=== PATIENT | female | born 1935 | race Caucasian/White ===

== ENCOUNTER 2020-08-22 10:54 | Inpatient (IN) ==
[2020-08-22 11:38] LABS: Basophils # (auto) 0.05 K/uL (0-0.2); Basophils % (auto) 0.4 %; Eosinophils # (auto) 2.18 K/uL (0-0.5); Eosinophils % (auto) 18.6 %; Hematocrit (blood only) 36.4 % (37-47); Hemoglobin 11.1 g/dL (12.0-16.0); Immature Granulocytes # (auto) 0.03 K/uL (0.00-0.02); Immature Granulocytes % (auto) 0.3 %; Lymphocytes # (auto) 1.87 K/uL (1.2-3.4); Mean Corpuscular Hemoglobin 29.6 pg (25-34); Mean Corpuscular Hgb Conc 30.5 g/dL (32-36); Mean Corpuscular Volume 97.1 fL (80-100); Mean Platelet Volume 9.2 fL (7.4-10.4); Monocytes # (auto) 0.44 K/uL (0.11-0.59); Monocytes % (auto) 3.8 %; Neutrophils # (auto) 7.13 K/uL (1.4-6.5); Neutrophils % (auto) 60.9 %; Platelet Count 254 K/uL (130-400); RDW Coefficient of Variation 14.5 % (11.5-14.5); RDW Standard Deviation 51.6 fL (36.4-46.3); Red Blood Count 3.75 M/uL (4.2-5.4)
--- NOTE | 2020-08-22 11:43 | XRay Report ---
XR chest 1V portable HISTORY: SEPSIS COMPARISON: None. FINDINGS: Cardiac silhouette is mildly enlarged. Small bilateral pleural effusions and diffuse inters titial thickening with hazy airspace opacities within the mid to lower lung zones. No pneumothorax. IMPRESSION: Above findings favor moderate pulmonary edema with small bilateral pleural effusions. The hazy airspa ce opacities at the lung bases could represent layering pleural fluid or a superimposed pneumonia. ACT 112: Negative or not required by law. Electronically signed by: Tejinder Pardo M.D. 08/22/2020 11:42 AM
[2020-08-22 11:45] LABS: Albumin Level 3.4 gm/dl (3.4-5.0); BUN Creatinine Ratio 19.4 (10-20); Calcium 8.4 mg/dl (8.5-10.1); Creatinine Clr Calc Pharmacy 45.7 ml/min; Est GFR (African American) 62.5; Est GFR (Non-African American) 53.9; Magnesium 2.2 mg/dl (1.8-2.4); Potassium 4.6 mmol/L (3.5-5.1)
[2020-08-22 11:48] LABS: INR 1.2 (0.9-1.1); Partial Thromboplastin Ratio 0.9; Partial Thromboplastin Time 24.7 Seconds (21.0-31.0); Prothrombin Time 12.3 Seconds (9.0-12.0)
[2020-08-22 11:54] LABS: Albumin Globulin Ratio 0.8 (0.9-2); Bilirubin,Total 0.5 mg/dl (0.2-1); Globulin 4.5 gm/dl (2.5-4.0); Total Protein 7.9 gm/dl (6.4-8.2); Troponin I 0.135 ng/ml (0-0.045)
--- NOTE | 2020-08-22 11:54 | Emergency Department Note ---
Impression & Plan Pulmonary edema, Hypoxia, Respiratory failure, Elevated troponin I level ED Provider Note NAME: FELICITAS NATHAN AGE: 84 SEX: F : 1935 ARRIVES VIA: Ambulance INFORMANT: Patient, ED PROVIDER(S): Julian Hardy DO CHIEF COMPLAINT: Shortness of breath HPI: The patient is an 84-year-old female who presented to the emergency dep artment by ambulance for an evaluation of shortness of breath. The patient does have a history of cardiac disease. She presented to the emergency department by ambulance and was placed on BiPAP prior to arrival. Her oxygen saturation was reportedly very low. She started having shortness of breath overnight which worsened prior to arrival. She was also given 2 DuoNeb treatments as well as Solu-Medrol prior to arrival. She states that she has had a nonproductive cough. She denies having any fever. She denies having any chest pain. She does have lower extremity swelling in her legs. She states that she has worsening swelling in her right leg after she had ankle surgery in the past. S he denies having any abdominal pain or vomiting. She is compliant with all of her medications. She states her symptoms are significantly improved after addition of BiPAP. ROS: See above HPI for pertinent positives & negatives. A total of 10 systems reviewed and were otherwise negative. PAST MEDICAL HISTORY: See Below PAST SURGICAL HISTORY: See Below FAMILY HISTORY: See Below SOCIAL HISTORY: See Below HOME MEDICATIONS: See Below ALLERGIES: See Below VITALS: See Below PHYSICAL EXAMINATION: GENERAL: The patient is awake and alert. The patient is very anxious appearing. EYES: The conjunctivae are clear. The pupils are round and reactive. EARS, NOSE, MOUTH AND THROAT: The nose is without any evidence of any deformity. Mucous membranes are moist. Tongue is midline. NECK: The neck is nontender and supple. RESPIRATORY: Diminished breath sounds are noted at both bases. There were rales noted at both lower lung nolasco. CARDIOVASCULAR: Regular rate and rhythm noted there no murmurs rubs or gallops normal S1 normal S2. GASTROINTESTINAL: The abdomen is soft. Abdomen is nontender. MUSCULOSKELETAL/EXTREMITIES: There is no evidence of gross deformity full range of motion is noted in the hips and shoulders. SKIN: There is no obvious evidence of any rash. Pedal edema was noted bilaterally right greater than left. There was no calf tenderness. NEUROLOGIC: Patient is awake alert and oriented x3. MEDICAL DECISION MAKING: The patient is an 84-year-old female who presented to the emergency department by ambulance for an evaluation of shortness of breath. The patient was having severe shortness of breath and was placed on BiPAP prior to arrival. She also received duo nebs and Solu-Medrol. The patient's presentation does appear to be more consistent with pulmonary edema. Radiographic studies appear to be consistent with pulmonary edema. The patient was treated with Lasix in the emergency department. She was also covered with an antibiotic and blood cultures were obtained. I discussed the patient's laboratory and radiographic studies with her. She initially was very obtunded but appears to be sig nificantly improved at this time. I discussed the patient's condition with the on-call [facility]ist. They have agreed to evaluate the patient in the emergency department for further management and disposition. Triage Nursing notes reviewed. Prior medical records reviewed Vital Signs: reviewed and remarkable for elevated blood pressure and hypoxia. Differential diagnosis: Reactive airway disease, pneumonia, pneumothorax, COPD, CHF, infections, cardiac ischemia, pulmonary embolism, musculoskeletal, gastrointestinal, as well as other pathologies. ER treatment provided: See below Diagnostics interpreted by me: ECG: EKG was obtained in the emergency department. My interpretation is normal sinus rhythm at [address] depressions were noted. There was no ectopy. No previous tracing was available for comparison. Cardiac Monitoring: An order was placed for continuous cardiac monitoring. The monitor shows a rate of 86 bpm with sinus rhythm. Laboratory studies: As stated above and show below. Imaging studies: See below Consultation(s): I discussed this case with Dr. Sanz who is on-call for the [facility]ist group. ED COURSE: Procedures: none PDMP:reviewed and no issues Critical Care: I have personally spent greater than 45 minutes of critical care time in the direct management of this patient. This includes bedside care, interpretation of diagnostic studies, and testing, discussion with consultants, patient, and family members, and other required patient management activities. This 45 minutes is in excess of all separately billable procedures. Past Med/Surg History Medical History History of hyperlipidemia History of hypertension History of hypothyroidism History of insulin dependent diabetes mellitus Family History (Updated 08/22/20 @ 13:32 by Charmaine Sanz DO) Sister Myocardial infarction Sister Myocardial infarction Brother Myocardial infarction Social History (Updated 08/22/20 @ 13:33 by Charmaine Sanz DO) Smoking Status: Never smoker Hx Alcohol Use: Yes (occasional wine) Hx Substance Use: No Preferred Language: Croatian Feels Safe at Home: Yes Allergies Allergies Allergy/AdvReac Type Severity Reaction Status Date / Time No Known Allergies Allergy Unverified 08/22/20 11:26 Home Meds Home Medications Medication Instructions Recorded Confirmed amlodipine 10 mg PO DAILY 08/22/20 08/22/20 atorvastatin 40 mg PO DAILY 08/22/20 08/22/20 carvedilol 25 mg PO BID 08/22/20 08/22/20 doxazosin 2 mg PO DAILY 08/22/20 08/22/20 furosemide 40 mg PO DAILY 08/22/20 08/22/20 insulin glargine [Lantus Solostar 26 unit SUBCUT PM 08/22/20 08/22/20 U-100 Insulin] levothyroxine [Synthroid] 75 mcg PO QAM 08/22/20 08/22/20 metformin 1,000 mg PO BID 08/22/20 08/22/20 potassium chloride 20 meq PO DAILY 08/22/20 08/22/20 quinapril 40 mg PO DAILY 08/22/20 08/22/20 Results & Data (ED) Vital Signs Vital Signs - 24 hr 08/22/20 11:03 08/22/20 11:06 08/22/20 11:07 Pulse Rate 85 87 Pulse Rate [Apical] Pulse Rhythm Regular Pulse Rhythm [Apical] Pulse Strength Pulse Strength [Apical] Respiratory Rate 32 H 12 Respiratory Effort / Characteristics Spontaneous Respiratory Depth Shallow Respiratory Pattern Tachypnea Blood Pressure Blood Pressure [Left Arm] Blood Pressure Mean Blood Pressure Mean [Left Arm] Blood Pressure Position Blood Pressure Position [Left Arm] Pulse Oximetry 99 96 96 Oxygen Delivery Method CPAP CPAP Oxygen Flow Rate Fraction of Inspired Oxygen 50 50 50 SaO2/FiO2 Ratio 192 Sepsis Recent Fever Within 48 Hours Sepsis New/Unexplained Change in Mental Status Sepsis Action Taken by Nursing 08/22/20 11:08 08/22/20 11:15 08/22/20 11:21 Pulse Rate 87 Pulse Rate [Apical] 84 Pulse Rhythm Regular Pulse Rhythm [Apical] Regular Pulse Strength Normal Pulse Strength [Apical] Normal Respiratory Rate 26 H 24 Respiratory Effort / Characteristics Non-Labored Spontaneous Spontaneous Accessory Muscle Use Labored Retracting Short of Breath SOB on Exertion Non-Labored Spontaneous Respiratory Depth Retractive Retractive Normal Respiratory Pattern Regular Regular Regular Blood Pressure 164/130 H Blood Pressure [Left Arm] 174/73 H Blood Pressure Mean 141 Blood Pressure Mean [Left Arm] 106 Blood Pressure Position Sitting Blood Pressure Position [Left Arm] Sitting Pulse Oximetry 96 94 Oxygen Delivery Method CPAP CPAP CPAP Oxygen Flow Rate Fraction of Inspired Oxygen 50 50 50 SaO2/FiO2 Ratio 192 188 Sepsis Recent Fever Within 48 Hours No Sepsis New/Unexplained Change in Mental Status No Sepsis Action Taken by Nursing No Action Required 08/22/20 12:16 08/22/20 13:26 08/22/20 13:28 Pulse Rate Pulse Rate [Apical] 83 84 Pulse Rhythm Pulse Rhythm [Apical] Regular Regular Pulse Strength Pulse Strength [Apical] Normal Normal Respiratory Rate 22 20 Respiratory Effort / Characteristics Non-Labored Spontaneous Non-Labored Spontaneous Respiratory Depth Normal Normal Respiratory Pattern Regular Regular Blood Pressure Blood Pressure [Left Arm] 150/101 H 137/76 Blood Pressure Mean Blood Pressure Mean [Left Arm] 117 96 Blood Pressure Position Blood Pressure Position [Left Arm] Sitting Lying Pulse Oximetry 95 91 91 Oxygen Delivery Method CPAP Oxymask Oxymask Oxygen Flow Rate 10 10 Fraction of Inspired Oxygen 50 SaO2/FiO2 Ratio 190 Sepsis Recent Fever Within 48 Hours Sepsis New/Unexplained Change in Mental Status Sepsis Action Taken by Assisted Medications Current Medication List: was personally reviewed by me Laboratory Data Attestation: I reviewed the patient's lab results. Result diagrams: 08/22/20 11:05 08/22/20 11:05 Lab Results 08/22/20 08/22/20 08/22/20 Range/Units 11:05 11:05 11:05 WBC 11.70 H (4.8-10.8) K/uL RBC 3.75 L (4.2-5.4) M/uL Hgb 11.1 L (12.0-16.0) g/dL Hct 36.4 L (37-47) % MCV 97.1 (80-100) fL MCH 29.6 (25-34) pg MCHC 30.5 L (32-36) g/dL RDW Std Deviation 51.6 H (36.4-46.3) fL RDW Coeff of Khoi 14.5 (11.5-14.5) % Plt Count 254 (130-400) K/uL MPV 9.2 (7.4-10.4) fL Immature Gran % (Auto) 0.3 % Neut % (Auto) 60.9 % Lymph % (Auto) 16.0 % Iron % (Auto) 3.8 % Eos % (Auto) 18.6 % Baso % (Auto) 0.4 % Neut # (Auto) 7.13 H (1.4-6.5) K/uL Lymph # (Auto) 1.87 (1.2-3.4) K/uL Iron # (Auto) 0.44 (0.11-0.59) K/uL Eos # (Auto) 2.18 H (0-0.5) K/uL Baso # (Auto) 0.05 (0-0.2) K/uL Immature Gran # (Auto) 0.03 H (0.00-0.02) K/uL PT 12.3 H (9.0-12.0) Seconds INR 1.2 H (0.9-1.1) APTT 24.7 (21.0-31.0) Seconds PTT Ratio 0.9 VBG pH (7.36-7.41) VBG pCO2 (38-50) mmHg VBG pO2 mmHg VBG HCO3 mmol/L VBG O2 Saturation % VBG Base Excess mEq/L Barometric Pressure mm/Hg Sodium 136 (136-145) mmol/L Potassium 4.6 (3.5-5.1) mmol/L Chloride 102 (98-107) mmol/L Carbon Dioxide 35 H (21-32) mmol/L Anion Gap -1.0 L (3-11) BUN 19 H (7-18) mg/dl Creatinine 0.96 (0.6-1.2) mg/dl Est Cr Clr Drug Dosing 45.7 ml/min Est GFR ( Amer) 62.5 Est GFR (Non-Af Amer) 53.9 BUN/Creatinine Ratio 19.4 (10-20) Glucose 157 H (70-99) mg/dl Lactate (0.4-2.0) mmol/L Calcium 8.4 L (8.5-10.1) mg/dl Magnesium 2.2 (1.8-2.4) mg/dl Total Bilirubin 0.5 (0.2-1) mg/dl AST 15 (15-37) U/L ALT 25 (12-78) U/L Alkaline Phosphatase 82 (45-117) U/L Troponin I 0.135 H* (0-0.045) ng/ml NT-Pro-B Natriuret Pep 947 (0-1800) pg/ml Total Protein 7.9 (6.4-8.2) gm/dl Albumin 3.4 (3.4-5.0) gm/dl Globulin 4.5 H (2.5-4.0) gm/dl Albumin/Globulin Ratio 0.8 L (0.9-2) Procalcitonin (0-0.5) ng/ml Urine Color Urine Appearance (Clear) Urine pH (4.5-7.5) Ur Specific [place] (1.000-1.030) Urine Protein (Negative) Urine Glucose (UA) (Negative) Urine Ketones (Negative) Urine Blood (Negative) Urine Nitrite (Negative) Urine Bilirubin (Negative) Urine Urobilinogen (Negative) Ur Leukocyte Esterase (Negative) Urine WBC (Auto) (0-5) /hpf Urine RBC (Auto) (0-4) /hpf U Hyaline Cast (Auto) (0-5) /lpf U Epithel Cells (Auto) (0-5) /lpf Urine Bacteria (Auto) (Negative) COVID-19 Eval Order SARS-CoV-2, RNA, NAAT (NEGATIVE) Blood Type Antibody Screen 08/22/20 08/22/20 08/22/20 Range/Units 11:05 11:05 11:25 WBC (4.8-10.8) K/uL RBC (4.2-5.4) M/uL Hgb (12.0-16.0) g/dL Hct (37-47) % MCV (80-100) fL MCH (25-34) pg MCHC (32-36) g/dL RDW Std Deviation (36.4-46.3) fL RDW Coeff of Khoi (11.5-14.5) % Plt Count (130-400) K/uL MPV (7.4-10.4) fL Immature Gran % (Auto) % Neut % (Auto) % Lymph % (Auto) % Iron % (Auto) % Eos % (Auto) % Baso % (Auto) % Neut # (Auto) (1.4-6.5) K/uL Lymph # (Auto) (1.2-3.4) K/uL Iron # (Auto) (0.11-0.59) K/uL Eos # (Auto) (0-0.5) K/uL Baso # (Auto) (0-0.2) K/uL Immature Gran # (Auto) (0.00-0.02) K/uL PT (9.0-12.0) Seconds INR (0.9-1.1) APTT (21.0-31.0) Seconds PTT Ratio VBG pH (7.36-7.41) VBG pCO2 (38-50) mmHg VBG pO2 mmHg VBG HCO3 mmol/L VBG O2 Saturation % VBG Base Excess mEq/L Barometric Pressure mm/Hg Sodium (136-145) mmol/L Potassium (3.5-5.1) mmol/L Chloride (98-107) mmol/L Carbon Dioxide (21-32) mmol/L Anion Gap (3-11) BUN (7-18) mg/dl Creatinine (0.6-1.2) mg/dl Est Cr Clr Drug Dosing ml/min Est GFR ( Amer) Est GFR (Non-Af Amer) BUN/Creatinine Ratio (10-20) Glucose (70-99) mg/dl Lactate 0.8 (0.4-2.0) mmol/L Calcium (8.5-10.1) mg/dl Magnesium (1.8-2.4) mg/dl Total Bilirubin (0.2-1) mg/dl AST (15-37) U/L ALT (12-78) U/L Alkaline Phosphatase (45-117) U/L Troponin I (0-0.045) ng/ml NT-Pro-B Natriuret Pep (0-1800) pg/ml Total Protein (6.4-8.2) gm/dl Albumin (3.4-5.0) gm/dl Globulin (2.5-4.0) gm/dl Albumin/Globulin Ratio (0.9-2) Procalcitonin < 0.05 (0-0.5) ng/ml Urine Color Urine Appearance (Clear) Urine pH (4.5-7.5) Ur Specific [place] (1.000-1.030) Urine Protein (Negative) Urine Glucose (UA) (Negative) Urine Ketones (Negative) Urine Blood (Negative) Urine Nitrite (Negative) Urine Bilirubin (Negative) Urine Urobilinogen (Negative) Ur Leukocyte Esterase (Negative) Urine WBC (Auto) (0-5) /hpf Urine RBC (Auto) (0-4) /hpf U Hyaline Cast (Auto) (0-5) /lpf U Epithel Cells (Auto) (0-5) /lpf Urine Bacteria (Auto) (Negative) COVID-19 Eval [email or web address] SARS-CoV-2, RNA, NAAT (NEGATIVE) Blood Type Antibody Screen 08/22/20 08/22/20 08/22/20 Range/Units 11:25 11:44 11:44 WBC (4.8-10.8) K/uL RBC (4.2-5.4) M/uL Hgb (12.0-16.0) g/dL Hct (37-47) % MCV (80-100) fL MCH (25-34) pg MCHC (32-36) g/dL RDW Std Deviation (36.4-46.3) fL RDW Coeff of Khoi (11.5-14.5) % Plt Count (130-400) K/uL MPV (7.4-10.4) fL Immature Gran % (Auto) % Neut % (Auto) % Lymph % (Auto) % Iron % (Auto) % Eos % (Auto) % Baso % (Auto) % Neut # (Auto) (1.4-6.5) K/uL Lymph # (Auto) (1.2-3.4) K/uL Iron # (Auto) (0.11-0.59) K/uL Eos # (Auto) (0-0.5) K/uL Baso # (Auto) (0-0.2) K/uL Immature Gran # (Auto) (0.00-0.02) K/uL PT (9.0-12.0) Seconds INR (0.9-1.1) APTT (21.0-31.0) Seconds PTT Ratio VBG pH 7.22 L (7.36-7.41) VBG pCO2 81 H (38-50) mmHg VBG pO2 55 mmHg VBG HCO3 32 mmol/L VBG O2 Saturation 81.0 % VBG Base Excess 2.7 mEq/L Barometric Pressure 739.2 mm/Hg Sodium (136-145) mmol/L Potassium (3.5-5.1) mmol/L Chloride (98-107) mmol/L Carbon Dioxide (21-32) mmol/L Anion Gap (3-11) BUN (7-18) mg/dl Creatinine (0.6-1.2) mg/dl Est Cr Clr Drug Dosing ml/min Est GFR ( Amer) Est GFR (Non-Af Amer) BUN/Creatinine Ratio (10-20) Glucose (70-99) mg/dl Lactate (0.4-2.0) mmol/L Calcium (8.5-10.1) mg/dl Magnesium (1.8-2.4) mg/dl Total Bilirubin (0.2-1) mg/dl AST (15-37) U/L ALT (12-78) U/L Alkaline Phosphatase (45-117) U/L Troponin I (0-0.045) ng/ml NT-Pro-B Natriuret Pep (0-1800) pg/ml Total Protein (6.4-8.2) gm/dl Albumin (3.4-5.0) gm/dl Globulin (2.5-4.0) gm/dl Albumin/Globulin Ratio (0.9-2) Procalcitonin (0-0.5) ng/ml Urine Color Urine Appearance (Clear) Urine pH (4.5-7.5) Ur Specific [place] (1.000-1.030) Urine Protein (Negative) Urine Glucose (UA) (Negative) Urine Ketones (Negative) Urine Blood (Negative) Urine Nitrite (Negative) Urine Bilirubin (Negative) Urine Urobilinogen (Negative) Ur Leukocyte Esterase (Negative) Urine WBC (Auto) (0-5) /hpf Urine RBC (Auto) (0-4) /hpf U Hyaline Cast (Auto) (0-5) /lpf U Epithel Cells (Auto) (0-5) /lpf Urine Bacteria (Auto) (Negative) COVID-19 Eval Order SARS-CoV-2, RNA, NAAT NEGATIVE (NEGATIVE) Blood Type A Positive Antibody Screen NEGATIVE 08/22/20 Range/Units 12:43 WBC (4.8-10.8) K/uL RBC (4.2-5.4) M/uL Hgb (12.0-16.0) g/dL Hct (37-47) % MCV (80-100) fL MCH (25-34) pg MCHC (32-36) g/dL RDW Std Deviation (36.4-46.3) fL RDW Coeff of Khoi (11.5-14.5) % Plt Count (130-400) K/uL MPV (7.4-10.4) fL Immature Gran % (Auto) % Neut % (Auto) % Lymph % (Auto) % Iron % (Auto) % Eos % (Auto) % Baso % (Auto) % Neut # (Auto) (1.4-6.5) K/uL Lymph # (Auto) (1.2-3.4) K/uL Iron # (Auto) (0.11-0.59) K/uL Eos # (Auto) (0-0.5) K/uL Baso # (Auto) (0-0.2) K/uL Immature Gran # (Auto) (0.00-0.02) K/uL PT (9.0-12.0) Seconds INR (0.9-1.1) APTT (21.0-31.0) Seconds PTT Ratio VBG pH (7.36-7.41) VBG pCO2 (38-50) mmHg VBG pO2 mmHg VBG HCO3 mmol/L VBG O2 Saturation % VBG Base Excess mEq/L Barometric Pressure mm/Hg Sodium (136-145) mmol/L Potassium (3.5-5.1) mmol/L Chloride (98-107) mmol/L Carbon Dioxide (21-32) mmol/L Anion Gap (3-11) BUN (7-18) mg/dl Creatinine (0.6-1.2) mg/dl Est Cr Clr Drug Dosing ml/min Est GFR ( Amer) Est GFR (Non-Af Amer) BUN/Creatinine Ratio (10-20) Glucose (70-99) mg/dl Lactate (0.4-2.0) mmol/L Calcium (8.5-10.1) mg/dl Magnesium (1.8-2.4) mg/dl Total Bilirubin (0.2-1) mg/dl AST (15-37) U/L ALT (12-78) U/L Alkaline Phosphatase (45-117) U/L Troponin I (0-0.045) ng/ml NT-Pro-B Natriuret Pep (0-1800) pg/ml Total Protein (6.4-8.2) gm/dl Albumin (3.4-5.0) gm/dl Globulin (2.5-4.0) gm/dl Albumin/Globulin Ratio (0.9-2) Procalcitonin (0-0.5) ng/ml Urine Color Yellow Urine Appearance Clear (Clear) Urine pH 5.5 (4.5-7.5) Ur Specific [place] 1.020 (1.000-1.030) Urine Protein 2+ H (Negative) Urine Glucose (UA) Negative (Negative) Urine Ketones Negative (Negative) Urine Blood Negative (Negative) Urine Nitrite Negative (Negative) Urine Bilirubin Negative (Negative) Urine Urobilinogen Negative (Negative) Ur Leukocyte Esterase Negative (Negative) Urine WBC (Auto) 1-5 (0-5) /hpf Urine RBC (Auto) 0-4 (0-4) /hpf U Hyaline Cast (Auto) 1-5 (0-5) /lpf U Epithel Cells (Auto) 10-20 H (0-5) /lpf Urine Bacteria (Auto) Negative (Negative) COVID-19 Eval Order SARS-CoV-2, RNA, NAAT (NEGATIVE) Blood Type Antibody Screen Administered Medications Discontinued Medications Furosemide (Furosemide 40 Mg/4 Ml Vial) 40 mg IV NOW STA Stop: 08/22/20 12:10 Last Admin: 08/22/20 12:31 Dose: 40 mg Documented by: [id number] Piperacillin Sod/Tazobactam Sod (Zosyn) 4.5 gm in 120 mls @ 240 mls/hr IV NOW ONE Stop: 08/22/20 12:38 Last Infusion: 08/22/20 13:01 Dose: 0 mls/hr Documented by: [id number] Admin: 08/22/20 12:31 Dose: 240 mls/hr Documented by: [id number] Imaging Data Radiologist's Impression: Patient: JACFELICITAS Admit Date: 08/22/20 MR#: [id number] Address[address]: [address] Acct ID:[id number] Address2: [address] Date: 1935 [facility] Zip: [id number] Age: 84 Location: ED Sex: F Room/Bed: Att Phy: Diagnosis: X Karena Phy: PCP,NO Service Date: 08/22/20 Fam Phy: Interpreting Phy: Tejinder Pardo MD Admit Phy: Ordering Phy: Julian Hardy, DO cc: ~ XR chest 1V portable HISTORY: SEPSIS COMPARISON: None. FINDINGS: Cardiac silhouette is mildly enlarged. Small bilateral pleural effusions and diffuse interstitial thickening with hazy airspace opacities within the mid to lower lung zones. No pneumothorax. IMPRESSION: Above findings favor moderate pulmonary edema with small bilateral pleural effusions. The hazy airspace opacities at the lung bases could represent layering pleural fluid or a superimposed pneumonia. ACT 112: Negative or not required by law. Electronically signed by: Tejinder Pardo M.D. 08/22/2020 11:42 AM Dictated: 08/22/20 1141 Transcribed: 08/22/20 1141 Blood Pressure Blood Pressure Findings: Normal blood pressure Discharge Plan Visit Data Chief Complaint: Shortness of Breath/Dyspnea ED Provider: Julian Hardy Discharge Problem: Pulmonary edema, Hypoxia, Respiratory failure, Elevated troponin I level Patient Disposition: Being Evaluated by Hospitalist Condition: Good Forms Stand Alone Forms: My [facility] [employer] Prescriptions Prescriptions: No Action furosemide 40 mg tablet 40 mg PO DAILY RF: 0 atorvastatin 40 mg tablet 40 mg PO DAILY RF: 0 carvedilol 25 mg tablet 25 mg PO BID RF: 0 potassium chloride 10 mEq tablet extended release 20 meq PO DAILY RF: 0 quinapril 40 mg tablet 40 mg PO DAILY RF: 0 levothyroxine [Synthroid] 75 mcg tablet 75 mcg PO QAM RF: 0 amlodipine 10 mg tablet 10 mg PO DAILY RF: 0 metformin 1,000 mg tablet 1,000 mg PO BID RF: 0 doxazosin 2 mg tablet 2 mg PO DAILY RF: 0 Lantus Solostar U-100 Insulin 100 unit/mL (3 mL) insulin pen 26 unit SUBCUT PM RF: 0 Referrals Referrals: PCP,NO [Primary Care Provider] -
[2020-08-22 12:01] LABS: Base Excess VBG 2.7 mEq/L; pH VBG 7.22 (7.36-7.41)
[2020-08-22] MEDS ORDERED: PIPERACILLIN/TAZOBACTAM 4.5 GM/120 ML BAG IV ONE (12:09)
[2020-08-22] MEDS ORDERED: FUROSEMIDE 40 MG/4 ML VIAL IV STA (12:09)
[2020-08-22] MEDS ORDERED: PIPERACILL/TAZOBAC CONSULT ACTIVE PRN (12:09)
[2020-08-22 13:04] LABS: Appearance Urine Clear (Clear); Bacteria Urine Automated Negative (Negative); Bilirubin Urine Negative (Negative); Blood Urine Negative (Negative); Color Urine Yellow; Glucose Urine UA Negative (Negative); Ketones Urine Negative (Negative); Leukocyte Esterase Urine Negative (Negative); Nitrite Urine Negative (Negative); Protein Urine 2+ (Negative); RBC Urine Automated 0-4 /hpf (0-4); Urobilinogen Urine Negative (Negative); pH Urine 5.5 (4.5-7.5)
--- NOTE | 2020-08-22 13:30 | History & Physical Report ---
Date of Service August 22, 2020 Assessment & Plan (1) Hypoxia: CXR noted for likely pleural effusions, less likely superimposed PNA Pt felt her sx had resolved s/p BIPAP, nebs, solumedrol en route to [facility] Pt received lasix and zosyn in the ED Pt takes lasix 40mg QD at baseline, seems likely this is a CHF exacerbation Recent ECHO with [facility], records requested Repeat ECHO given sudden onset of sx in the setting of medication compliance Trop with slight elevation at 0.135, serials pending EKG neg for acute PRP, Mg WNL CBC is with very slight anemia and leukocytosis Procal neg, afebrile, will not continue abx at this time Wean BIPAP as able COVID neg on admission (2) Elevated troponin: As noted above (3) HTN (hypertension): continue home meds BP slightly elevated, will give some of missed AM meds now and monitor (4) Leukocytosis: Procal neg, afebrile, will not continue abx at this time Possibly related to steroid use [employer] TREE [employer] Monitor (5) Hypothyroid: continue home meds (6) DM type 2 (diabetes mellitus, type 2): A1c pending Metformin, lantus as at home SSI PRN (7) Hyperlipidemia: continue home meds (8) DVT prophylaxis: SCDs, aspirin History of Present Illness Primary Care Provider: NO PCP 84 y/o F c/o SOB. Pt states she has not been SOB at all recently, even with exe rtion. She had a usual day for herself yesterday. She took all of her medications yesterday and she does not miss doses of lasix ever. She woke up this morning and felt fine. She got dressed and was waiting for her nephew to come as he usually does on Monday mornings. She was lying on the couch waiting when she had a sudden onset of SOB. She could not catch her breath. Her nephew came and called the ambulance. When the ambulance arrived, pt was noted to have low O2 sats, low enough that she was started on BIPAP at that time. 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 Pt states that she had a mild substernal chest pain with her SOB as well, but it has since resolved. It did not radiate. Pt denies fever, abd pain, n/v/c/d, LE pain. Pt states she always has a slight LE swelling and that this is at its usual today. 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 She states she feels fine now. Pt denies ever feeling SOB like this in the past. She has no hx of inhaler use. Pt had not yet taken her AM meds prior to onset of sx today. She does take aspirin 81mg at baseline, for prevention only. Denies hx of VA or CVA. Pt follows with [facility] cardiology, "Dr. Thomas". She pronounces his name as Kiara (sp??), but is unsure how to spell it. She had an ECHO roughly 3 months ago. Allergies Allergy/AdvReac Type Severity Reaction Status Date / Time No Known Allergies Allergy Unverified 08/22/20 11:26 Home Medications Medication Instructions Recorded Confirmed Type amlodipine 10 mg PO DAILY 08/22/20 08/22/20 History atorvastatin 40 mg PO DAILY 08/22/20 08/22/20 History carvedilol 25 mg PO BID 08/22/20 08/22/20 History doxazosin 2 mg PO DAILY 08/22/20 08/22/20 History furosemide 40 mg PO DAILY 08/22/20 08/22/20 History insulin glargine [Lantus Solostar 26 unit SUBCUT PM 08/22/20 08/22/20 History U-100 Insulin] levothyroxine [Synthroid] 75 mcg PO QAM 08/22/20 08/22/20 History metformin 1,000 mg PO BID 08/22/20 08/22/20 History potassium chloride 20 meq PO DAILY 08/22/20 08/22/20 History quinapril 40 mg PO DAILY 08/22/20 08/22/20 History Past Med/Surg History Medical History History of hyperlipidemia History of hypertension History of hypothyroidism History of insulin dependent diabetes mellitus Family History (Updated 08/22/20 @ 13:32 by Charmaine Sanz DO) Sister Myocardial infarction Sister Myocardial infarction Brother Myocardial infarction Social History (Updated 08/22/20 @ 13:33 by Charmaine Sanz DO) Smoking Status: Never smoker Hx Alcohol Use: Yes (occasional wine) Hx Substance Use: No Preferred Language: Sinhala Feels Safe at Home: Yes Review of Systems Review of Systems: Pertinent positives and negatives reviewed in HPI--all others negative Physical Exam Constitutional: WD/WN, vitals as above Eyes: normal visual nolasco by confrontation and + anicteric sclerae Neck: normal visual inspection and trachea midline Respiratory: normal respiratory effort; no respiratory distress and no labored breathing Auscultation: + crackles and + wheezes Cardiovascular: Rate/Rhythm: regular rate and regular rhythm Extremities: + edema (trace, b/l, nonpitting) Gastrointestinal (Abdomen): Inspection/Auscultation: abdomen not distended Percussion/Palpation: abdomen soft; abdomen nontender Musculoskeletal: Head/Neck/Chest: normocephalic and head atraumatic edema, peripheral pulses intact Skin: no rashes, warm and dry Neurologic: awake; not confused Speech / Cognition: normal speech Psychiatric: A+Ox3, euthymic affect Results & Data Results & Data ([facility]) Vital Signs (Past 12 Hours) Vital Signs Pulse Pulse Resp BP BP Pulse Ox 08/22/20 12:16 83 22 150/101 H 95 08/22/20 11:21 84 24 174/73 H 94 08/22/20 11:08 87 26 H 164/130 H 96 08/22/20 11:07 87 12 96 08/22/20 11:06 96 08/22/20 11:03 85 32 H 99 Diagnostic Findings CXR: likely b/l pleural effusions, cannot r/o superimposed PNA ECG Rhythm: normal sinus Code Status & VTE Plan Code Status DNR/DNI VTE Prophylaxis Plan VTE Prophylaxis will be ordered: Yes PG Care Time/CCT Total # of Minutes Spent Total Time Spent with Patient: Total time spent is greater than 50% in coordination of care (as documented) at patient's floor/unit and/or counseling patient: Coding Level of Care Code 65244 Initial Inpt Care Lvl 3 Diagnoses Hypoxia R09.02 Elevated troponin R77.8 HTN (hypertension) I10 Leukocytosis D72.829 Hypothyroid E03.9 DM type 2 (diabetes mellitus, type 2) E11.9 Hyperlipidemia E78.5 DVT prophylaxis Z29.9
[2020-08-22] MEDS ORDERED: MAGNESIUM HYDROXIDE SUSP 30 ML UDC PO PRN (16:12)
[2020-08-22] MEDS ORDERED: CARBOHYDRATES FOR HYPOGLYCEMIA PO PRN (16:12)
[2020-08-22] MEDS ORDERED: GLUCOSE 40% GEL 15 GM TUBE PO PRN (16:12)
[2020-08-22] MEDS ORDERED: GLUCOSE 10 TABS/TUBE PO PRN (16:12)
[2020-08-22] MEDS ORDERED: ACETAMINOPHEN 325 MG TAB PO PRN (16:12)
[2020-08-22] MEDS ORDERED: ONDANSETRON INJ 2 MG/ML 2 ML VIAL IV PRN (16:12)
[2020-08-22] MEDS ORDERED: DEXTROSE 50% 50 ML SYRINGE IV PRN (16:12)
[2020-08-22] MEDS ORDERED: GLUCAGON FOR INJ 1 MG VIAL SQ PRN (16:12)
[2020-08-22] MEDS: ALBUT/IPRATROP 3MG/0.5MG NEB 3 ML VIAL NEB SCH ×3 (16:28→22:28)
[2020-08-22] MEDS: LEVOTHYROXINE SODIUM 75 MCG TABLET PO SCH (17:06)
[2020-08-22] MEDS: amLODIPine BESYLATE 5 MG TAB PO SCH (17:06)
[2020-08-22] MEDS: metFORMIN HCL 500 MG TAB PO SCH (17:07)
[2020-08-22] MEDS: ENALAPRIL MALEATE 10 MG TAB PO SCH (17:07)
[2020-08-22] MEDS: INSULIN ASPART 100 UNITS/ML 3 ML PEN SC SCH ×2 (17:24→20:36)
[2020-08-22] MEDS ORDERED: PIPERACILLIN/TAZOBACTAM 3.375 GM in DEXTROSE 5% 100 ML IV SCH (18:00)
[2020-08-22] MEDS: carvediloL 25 MG TAB PO SCH (20:49)
[2020-08-22] MEDS ORDERED: INSULIN GLARGINE SOLOSTAR 100 UNITS/ML 3 ML PEN SQ SCH (21:00)
[2020-08-23] MEDS: ALBUT/IPRATROP 3MG/0.5MG NEB 3 ML VIAL NEB SCH ×4 (03:13→15:02)
[2020-08-23 05:17] LABS: Eosinophils # (auto) 0.01 K/uL (0-0.5); Eosinophils % (auto) 0.1 %; Hematocrit (blood only) 30.9 % (37-47); Hemoglobin 9.7 g/dL (12.0-16.0); Immature Granulocytes # (auto) 0.02 K/uL (0.00-0.02); Immature Granulocytes % (auto) 0.2 %; Lymphocytes # (auto) 0.89 K/uL (1.2-3.4); Lymphocytes % (auto) 9.9 %; Mean Corpuscular Hemoglobin 29.7 pg (25-34); Mean Corpuscular Hgb Conc 31.4 g/dL (32-36); Mean Corpuscular Volume 94.5 fL (80-100); Mean Platelet Volume 9.1 fL (7.4-10.4); Monocytes # (auto) 0.76 K/uL (0.11-0.59); Monocytes % (auto) 8.5 %; Neutrophils # (auto) 7.29 K/uL (1.4-6.5); Neutrophils % (auto) 81.3 %; Platelet Count 197 K/uL (130-400); RDW Coefficient of Variation 14.4 % (11.5-14.5); RDW Standard Deviation 49.6 fL (36.4-46.3); Red Blood Count 3.27 M/uL (4.2-5.4); White Blood Count 8.97 K/uL (4.8-10.8)
[2020-08-23] MEDS: LEVOTHYROXINE SODIUM 75 MCG TABLET PO SCH (06:08)
--- NOTE | 2020-08-23 06:35 | Electrocardiogram Report ---
Test Reason : Blood Pressure : / mmHG Vent. Rate : 087 BPM Atrial Rate : 087 BPM P-R Int : 202 ms QRS Dur : 094 ms QT Int : 378 ms P-R-T Axes : 083 059 045 degrees QTc Int : 454 ms Normal sinus rhythm Nonspecific ST abnormality Abnormal ECG No previous ECGs available Confirmed by John Khan ([id number]) on 08/23/2020 6:34:54 AM Referred By: REFERRED SELF Confirmed By:John Khan
[2020-08-23] MEDS: INSULIN ASPART 100 UNITS/ML 3 ML PEN SC SCH ×2 (07:48→12:23)
[2020-08-23] MEDS ORDERED: PERFLUTREN LIPID MICROSPHERE (DEFINITY) IV ONE (08:43)
[2020-08-23] MEDS ORDERED: POTASSIUM CHLORIDE CRTAB 20 MEQ TABCR PO SCH (09:00)
[2020-08-23] MEDS ORDERED: predniSONE 20 MG TAB PO SCH (09:00)
[2020-08-23] MEDS ORDERED: ATORVASTATIN 40 MG TAB PO SCH (09:00)
[2020-08-23] MEDS ORDERED: DOXAZosin MESYLATE TAB 2 MG TAB PO SCH (09:00)
[2020-08-23] MEDS ORDERED: ASPIRIN 81 MG ECTAB PO SCH (09:00)
[2020-08-23] MEDS ORDERED: FUROSEMIDE 40 MG TAB PO SCH (09:00)
[2020-08-23] MEDS: ENALAPRIL MALEATE 10 MG TAB PO SCH (09:15)
[2020-08-23] MEDS: metFORMIN HCL 500 MG TAB PO SCH (09:16)
[2020-08-23] MEDS: carvediloL 25 MG TAB PO SCH (09:17)
[2020-08-23] MEDS: amLODIPine BESYLATE 5 MG TAB PO SCH (09:17)
--- NOTE | 2020-08-23 15:46 | XCELERA ---
[id number] \\[id number]
--- NOTE | 2020-08-23 17:47 | Discharge Summary ---
Date of Service August 23, 2020 Admission HPI Per Admitting Provider 84 y/o F c/o SOB. Pt states she has not been SOB at all recently, even with exertion. She had a usual day for herself yesterday. She took all of her medications yesterday and she does not miss doses of lasix ever. She woke up this morning and felt fine. She got dressed and was waiting for her nephew to come as he usually does on Monday mornings. She was lying on the couch waiting when she had a sudden onset of SOB. She could not catch her breath. Her nephew came and called the ambulance. When the ambulance arrived, pt was noted to have low O2 sats, low enough that she was started on BIPAP at that time. 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 Pt states that she had a mild substernal chest pain with her SOB as well, but it has since resolved. It did not radiate. Pt denies fever, abd pain, n/v/c/d, LE pain. Pt states she always has a slight LE swelling and that this is at its usual today. 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 She states she feels fine now. Pt denies ever feeling SOB like this in the past. She has no hx of inhaler use. Pt had not yet taken her AM meds prior to onset of sx today. She does take aspirin 81mg at baseline, for prevention only. Denies hx of [place] or CVA. Pt follows with [facility] beds at the [facility] cardiology, "Dr. Thomas". She pronounces his name as Kiara (sp??), but is unsure how to spell it. She had an ECHO roughly 3 months ago. Principal Diagnosis Pt denies any SOB at rest this AM, however she is still on a face mask. She states she is eating well and would like to go home. She states that she is leaving AMA regardless due to some personal issues including a railroad crossing protection maintainer coming to her home today and having an out of town guest. Per nursing, attempts to decrease pt to NC were not successful and she drops to the mid-80s. Advised nursing to attempt further wean, which had same results. Called by nursing later in the afternoon after pt states that she is leaving regardless and her niece is coming to get her. Again discussed risks with pt in that she is dropping her O2 sats even with NC in place, however she is still adamant to leave. I did advise her that I could have home O2 set up tomorrow AM and that she could be discharged at that time. Pt continues to state she is leaving tonight. Advised nursing to walk pt to see how she does with prolonged ambulation as pt has not been OOB today. Pt dropping to 74% on RA with ambulation, however not becoming SOB. Nursing reports after about 10 minutes, her sats did return to 84%, still not SOB. I called pt's niece. She is a nurse. Pt is not her biological aunt, but the aunt of her . "I've adopted her since I am the nurse of the family." She states she is very familiar with pt. Pt did not tell her about the desat issues. Veena does agree that it is dangerous to bring pt home without O2 "but if I don't come to get her, someone else will". It is possible that pt has been living with low level hypoxia for some time and has compensated for it until yesterday AM. I did discuss this option with Veena who states that pt would likely not tell anyone if she was having issues. Veena states that she and her have breakfast every weekend with pt, but don't see her much during the week and pt lives alone. Veena also attempted to discourage pt from leaving without home O2 set up, however pt is adamant. Veena did ultimately come to pick up worker pt AMA. Discharge Exam Constitutional WD/WN, vitals as above Eyes normal visual nolasco by confrontation and + anicteric sclerae Neck normal visual inspection and trachea midline Respiratory normal respiratory effort, lungs clear to auscultation Cardiovascular Rate/Rhythm: regular rate and regular rhythm Gastrointestinal (Abdomen) Inspection/Auscultation: abdomen not distended Percussion/Palpation: abdomen soft; abdomen nontender Musculoskeletal Head/Neck/Chest: normocephalic and head atraumatic Skin no rashes, warm and dry Neurologic awake; not confused Speech / Cognition: normal speech Psychiatric A+Ox3, euthymic affect Discharge Data Allergies Allergy/AdvReac Type Severity Reaction Status Date / Time No Known Allergies Allergy Unverified 08/22/20 11:26 Consultations 08/22/20 12:47 ED Decision to Admit Stat 08/22/20 16:12 Consult Health Information Management Stat 08/23/20 16:19 Consult Health Information Management Routine Hospital Course (1) Hypoxia: CXR noted for likely pleural effusions, less likely superimposed PNA Pt felt her sx had resolved s/p BIPAP, nebs, solumedrol en route to [facility] Pt received lasix and zosyn in the ED Pt takes lasix 40mg QD at baseline, seems likely this is a CHF exacerbation Recent ECHO with [facility] beds at the [facility], records requested however given pt was an admission Monday late afternoon, records did not arrive Repeat ECHO with EF 60-65% and no major valvular issues, prior not available to compare Trop with slight elevation at 0.135, serials peaked around 0.9 EKG neg for acute PRP, Mg WNL CBC is with very slight anemia and leukocytosis Procal neg, afebrile, will not continue abx at this time Able to tolerate facemask without issue after weaning from BIPAP, however was not maintaining sats without O2 Pt was adamant about leaving and ultimately left AMA as outlined above, despite sats dropping to the mid-70s with ambulation Pt is asx with these drops BP is slightly elevated or WNL for pt's age and HR has been WNL, even with desats It is possible that pt has been living with low level hypoxia for some time and has compensated for it until yesterday AM Pt declined further assessment I will discuss with CM tomorrow to see what can be set up for pt as an outpt, either home O2 delivery or HHN assessment for further evaluation. Pt is agr eeable to home O2, but was not agreeable to stay for arrangements to be made. 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 today (5) Hypothyroid: continue home meds (6) DM type 2 (diabetes mellitus, type 2): A1c pending Metformin, lantus as at home SSI PRN (7) Hyperlipidemia: continue home meds (8) DVT prophylaxis: SCDs, aspirin Total Time Total Time Spent Total Time Spent (In Minutes): >30 Total Time Includes: Examination of the Patient, Discharge Planning, Medication Reconciliation, Communication With Other Providers and Other Discharge Plan Discharge Items Patient Disposition: Against Medical Advice Reason For Visit: CHF EXACERBATION Condition on Discharge: Good Follow-up/Referrals: Jose Kumar [Primary Care Provider] - Stand-Alone Forms: [facility], Smoking Cessation Medications and DC Order Prescriptions: No Action furosemide 40 mg tablet 40 mg PO DAILY RF: 0 atorvastatin 40 mg tablet 40 mg PO DAILY RF: 0 carvedilol 25 mg tablet 25 mg PO BID RF: 0 potassium chloride 10 mEq tablet extended release 20 meq PO DAILY RF: 0 quinapril 40 mg tablet 40 mg PO DAILY RF: 0 levothyroxine [Synthroid] 75 mcg tablet 75 mcg PO QAM RF: 0 amlodipine 10 mg tablet 10 mg PO DAILY RF: 0 metformin 1,000 mg tablet 1,000 mg PO BID RF: 0 doxazosin 2 mg tablet 2 mg PO DAILY RF: 0 Lantus Solostar U-100 Insulin 100 unit/mL (3 mL) insulin pen 26 unit SUBCUT PM RF: 0 Discharge Orders: Discharge Order (Routine); Ordered 08/23/20 Ordered By: Charmaine Sanz Admission Data Admit Date/Time: 08/22/20 13:57 Attending Provider: Charmaine Sanz Admit Provider: Charamine Sanz Primary Care Provider: Jose Kumar Other Providers: Charmaine Sanz Coding Level of Care Code D/C Day Management >30 mins Diagnoses Hypoxia R09.02 Elevated troponin R77.8 HTN (hypertension) I10 Leukocytosis D72.829 Hypothyroid E03.9 DM type 2 (diabetes mellitus, type 2) E11.9 Hyperlipidemia E78.5 DVT prophylaxis Z29.9
[2020-08-24 07:11] LABS: Estimated Average Glucose 134 mg/dl; Hemoglobin A1C 6.3 % (4.5-5.6)
== END 2020-08-23 18:00 | disposition left against medical advice (07) | DRG 292 ==
LOC: ED 10:54 → EDBD 10:54 → 2S 13:57